=== PATIENT | male | born 1945 | race Caucasian/White ===

== ENCOUNTER 2016-07-13 04:42 | Day surgery (SDC) | payer MEDICARE ==
[~2016-07-13 04:42] MED LIST: ALBUTEROL0.63 MG/3 INH; ASAB PO; CYMBALTA30 PO; MOBIC15 MG PO; NORCO1 TA2 PO; PRIN5 PO; ZANAFLEX 4 MG TA4 MG PO
[2016-08-26] MEDS ORDERED: ACET500CAP PO (13:32)
[2016-08-26] MEDS ORDERED: GLUCPH PO (13:49)
[2016-09-03] MEDS ORDERED: MEDROLPAK4 PO (09:16)
[2016-09-03] MEDS ORDERED: PCET PO (09:16)
[2016-09-03] MEDS ORDERED: V5 PO (09:16)
== END 2016-07-13 07:48 | disposition home or self-care (01) ==
LOC: SDC 04:42
PROVIDERS: Orthopaedic Surgery
PROC: B01BZZZ Fluoroscopy of Spinal Cord (ICD-10-PCS; 2016-07-13)
PROC: 3E0R3BZ Introduction of Anesthetic Agent into Spinal Canal, Percutaneous Approach (ICD-10-PCS; principal; 2016-07-13 07:00)
DX: M54.16 Radiculopathy, lumbar region (principal); M48.06 Spinal stenosis, lumbar region; E11.9 Type 2 diabetes mellitus without complications; M19.90 Unspecified osteoarthritis, unspecified site; J44.9 Chronic obstructive pulmonary disease, unspecified; G47.30 Sleep apnea, unspecified; Z99.81 Dependence on supplemental oxygen; I10 Essential (primary) hypertension; I25.2 Old myocardial infarction; F17.210 Nicotine dependence, cigarettes, uncomplicated; Z90.49 Acquired absence of other specified parts of digestive tract; Z98.890 Other specified postprocedural states; Z79.899 Other long term (current) drug therapy; Z79.82 Long term (current) use of aspirin
CPT/HCPCS: 82962; J1040; J2250; J3010; Q9967

== ENCOUNTER 2016-07-27 04:51 | Day surgery (SDC) | payer MEDICARE ==
[2016-08-26] MEDS ORDERED: ACET500CAP PO (13:32)
[2016-08-26] MEDS ORDERED: GLUCPH PO (13:49)
[2016-09-03] MEDS ORDERED: V5 PO (09:16)
[2016-09-03] MEDS ORDERED: MEDROLPAK4 PO (09:16)
[2016-09-03] MEDS ORDERED: PCET PO (09:16)
== END 2016-07-27 08:19 | disposition home or self-care (01) ==
LOC: SDC 04:51
PROVIDERS: Orthopaedic Surgery
PROC: 3E0S3BZ Introduction of Anesthetic Agent into Epidural Space, Percutaneous Approach (ICD-10-PCS; 2016-07-27)
PROC: 3E0S33Z Introduction of Anti-inflammatory into Epidural Space, Percutaneous Approach (ICD-10-PCS; principal; 2016-07-27 08:00)
DX: M54.16 Radiculopathy, lumbar region (principal); M54.5 Low back pain; Z85.038 Personal history of other malignant neoplasm of large intestine; Z98.890 Other specified postprocedural states; E11.9 Type 2 diabetes mellitus without complications; Z90.49 Acquired absence of other specified parts of digestive tract; J44.9 Chronic obstructive pulmonary disease, unspecified; G47.33 Obstructive sleep apnea (adult) (pediatric); H91.90 Unspecified hearing loss, unspecified ear; I10 Essential (primary) hypertension; I21.3 ST elevation (STEMI) myocardial infarction of unspecified site; F17.210 Nicotine dependence, cigarettes, uncomplicated; Z79.899 Other long term (current) drug therapy; Z79.891 Long term (current) use of opiate analgesic
CPT/HCPCS: 82962; J1040; J2250; J3010; Q9967